=== PATIENT | male | born 1955 | race Caucasian/White ===

== ENCOUNTER 2018-06-20 09:54 | Outpatient (CLI) | payer OTHER | END 2018-06-20 09:55 | disposition home or self-care (01) | LOC: LABBT 09:54 | PROVIDERS: ATTEND Neurological Surgery | DX: Z01.810 Encounter for preprocedural cardiovascular examination (principal); M51.16 Intervertebral disc disorders with radiculopathy, lumbar region | CPT/HCPCS: 93005; 93010 ==

== ENCOUNTER 2018-06-25 07:02 | Day surgery (SDC) | payer OTHER ==
[2018-06-20 10:56] VITALS: BMI 28.3
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
[2018-06-25] MEDS ORDERED: CEFAZOLIN 2 GM/50 ML BAG ONE ×2 (08:39→13:16)
[2018-06-25] MEDS ORDERED: Bupivacaine HCl 0.5%/Epinephrine 1:200,000/PF 30 ml Vial ONE (08:59)
[2018-06-25] MEDS ORDERED: Fentanyl 100 MCG/2 ML VIAL ONE (09:13)
[2018-06-25] MEDS ORDERED: Midazolam HCl 2 mg/2 ml Vial ONE (09:13)
[2018-06-25] MEDS ORDERED: Tamsulosin HCl 0.4 MG CAP ONE (11:01)
[2018-06-25] MEDS ORDERED: Glycopyrrolate 0.2 MG/ML 5 ML SYRINGE ONE (21:58)
[2018-06-25] MEDS ORDERED: PROPOFOL 200 MG/20 ML VIAL ONE (21:58)
[2018-06-25] MEDS ORDERED: Ketorolac Tromethamine 30 MG/ML VIAL ONE (21:58)
[2018-06-25] MEDS ORDERED: Ondansetron PF 4 MG/2 ML Vial ONE (21:58)
[2018-06-25] MEDS ORDERED: Lidocaine 1% PF 5 ML VIAL ONE (21:58)
[2018-06-25] MEDS ORDERED: PHENYLEPHRINE-NS 100 MCG/ML 10 ML SYRINGE ONE (21:58)
--- NOTE | 2018-06-26 15:16 | OP ---
DATE OF PROCEDURE: 06/25/2018 IMITATION [facility]BLE MECHANIC: Jeff Lackey PA-C INDICATION: Pain. DIAGNOSIS: Lumbar radiculopathy. PROCEDURE PERFORMED: Right L4 diskectomy. ANESTHESIA: General. TECHNIQUE: The patient was brought into the operating room and placed under general anesthesia. He was flipped from the supine to prone position on the operating room table. A linear incision was planned over the L4 segment. After prepping and draping and after preoperative pause, the incision was created. The soft tissues were swept away from midline. A self-retaining retractor was placed in the wound for optimal exposure. After confirming appropriate level with C-arm fluoroscopy, high-speed cutting drill bit as well as 2, 3, and 4 mm Kerrisons were used to perform a laminectomy along L4 in order to decompress the lateral recesses. The thecal sac was mobilized medially and a diskectomy was performed at L4 in order to decompress the descending L5 nerve root. The wound was then irrigated. Hemostasis was maintained throughout. The wound was then closed in anatomic layers and a pressure dressing was applied. There were no known procedural complications. Job ID: [id number]
== END 2018-06-26 13:55 | disposition home or self-care (01) ==
LOC: SDC 07:02
PROVIDERS: ATTEND Neurological Surgery
PROC: 01NB0ZZ Release Lumbar Nerve, Open Approach (ICD-10-PCS; principal; 2018-06-26)
PROC: 0SB20ZZ Excision of Lumbar Vertebral Disc, Open Approach (ICD-10-PCS; principal; 2018-06-26)
DX: M51.16 Intervertebral disc disorders with radiculopathy, lumbar region (principal); I10 Essential (primary) hypertension; Z79.899 Other long term (current) drug therapy
CPT/HCPCS: 76001; J0131; J0670; J1885; J2001; J2250; J2405; J2704; J3010

== ENCOUNTER 2018-09-11 14:09 | Outpatient (CLI) | payer OTHER ==
--- NOTE | 2018-09-11 15:28 | RAD ---
LUMBAR SPINE 3 VIEWS: HISTORY: M54.5, low back pain. COMPARISON: None. FINDINGS: There are bilateral small ribs that we will call T12 for the basis of this examination. That makes t he L5 vertebra a lumbosacral transitional vertebra with fusion in the enlarged right L5 transverse pr ocess with the sacrum. Given this numbering system, there is narrowing of the L3-4, L4-5, and L5-S1 disk spaces. No signifi cant listhesis. There is narrowing of the intraspinous spaces between L3-4 and L4-5. No acute fracture or malalignment. Mild vascular calcifications. IMPRESSION: Degenerative changes as described with a lumbosacral transition vertebra which will be termed L5 for the basis of this examination with enlarged right L5 transverse process with fusion with the sacrum. POS: JOSÉ
== END 2018-09-11 14:10 | disposition home or self-care (01) ==
LOC: TBSIIMAG 14:09
PROVIDERS: ATTEND Neurological Surgery
DX: M54.5 Low back pain (principal); M47.817 Spondylosis without myelopathy or radiculopathy, lumbosacral region; Z98.1 Arthrodesis status
CPT/HCPCS: 72100